=== PATIENT | female | born 1990 | race American Indian/Alaskan Native ===

== ENCOUNTER 2016-09-08 03:49 | Emergency (ER) | payer OTHER ==
[2016-09-08 04:03] VITALS: TEMP 98.5
--- NOTE | 2016-09-08 05:40 | C.PDOC ---
History Of Present Illness 26 year old female who presents to the ER with a complaint of mid sternal, intermittent chest pain for the past week. Patient reports she has been under a lot of stress, she recently broke up with her boyfriend "and ain't got no job now". Denies trauma, cough, fever, SOB, numbness, or weakness. Time Seen by Provider: 09/08/16 04:17 Chief Complaint (Nursing): Chest Pain History Per: Patient History/Exam Limitations: no limitations Onset/Duration Of Symptoms: Days Current Symptoms Are (Timing): Still Present Associated Symptoms: denies: Nausea, Dyspnea, Diaphoresis Modifying Factors: None Exacerbating Factors: None Alleviating Factors: None Recent travel outside of the [place]: No Past Medical History Reviewed: Historical Data, Nursing Documentation, Vital Signs Vital Signs: Last Vital Signs Temp 98.5 F 09/08/16 03:58 Pulse 70 09/08/16 06:19 Resp 14 09/08/16 06:19 BP 130/70 09/08/16 06:19 Pulse Ox 100 09/08/16 06:24 - Medical History PMH: Anxiety Surgical History: (x1) Family History: States: Unknown Family Hx - Social History Hx Tobacco Use: No Hx Alcohol Use: Yes Hx Substance Use: No - Immunization History Hx Tetanus Toxoid Vaccination: No Hx Influenza Vaccination: No Hx Pneumococcal Vaccination: No Review Of Systems Except As Marked, All Systems Reviewed And Found Negative. Constitutional: Negative for: Fever, Chills Cardiovascular: Positive for: Chest Pain. Negative for: Palpitations Respiratory: Negative for: Cough, Shortness of Breath Gastrointestinal: Negative for: Nausea, Vomiting Neurological: Negative for: Weakness, Numbness Physical Exam - Physical Exam Appears: Well, Non-toxic, No Acute Distress Skin: Normal Color, Warm, Dry, No Rash Head: Atraumatic, Normacephalic Eye(s): bilateral: Normal Inspection Oral Mucosa: Moist Neck: Normal ROM, Supple Chest: Symmetrical, No Tenderness Cardiovascular: Rhythm Regular, No Friction Rub, No Murmur Respiratory: Normal Breath Sounds, No Rales, No Rhonchi, No Wheezing Gastrointestinal/Abdominal: Soft, No Tenderness Extremity: Normal ROM, No Swelling Neurological/Psych: Oriented x3, Normal Speech, Normal Cognition, Normal Motor Gait: Steady ED Course And Treatment ECG: Interpreted By Me, Viewed By Me ECG Rhythm: Sinus Rhythm ECG Interpretation: Normal Rate From EC O2 Sat by Pulse Oximetry: 100 (Room air) Pulse Ox Interpretation: Normal - Radiology CXR: Interpreted by Me, Viewed By Me CXR Interpretation: Yes: No Acute Disease Medical Decision Making Medical Decision Making: Plan: * CXR * Xanax * Motrin On reevaluation, patient's pain has improved; Ambulatory in the Ed with steady gait. Will discharge home and advised to follow up with PMD. Disposition - Disposition Referrals: Almas Romero MD [Staff Provider] - Disposition: HOME/ ROUTINE Disposition Time: 06:11 Condition: GOOD Additional Instructions: Follow up with the medical doctor within 1-2 days, Return if worsened. Prescriptions: Ibuprofen [Motrin Tab] 800 mg PO TID #20 tab Instructions: Stress (ED) Forms: [facility] ([place] Zealander) - Clinical Impression Clinical Impression: Anxiety, Stress, Chest pain - Scribe Statement The provider has reviewed the documentation as recorded by the Scribe Claude Neil All medical record entries made by the Scribe were at my direction and personally dictated by me. I have reviewed the chart and agree that the record accurately reflects my personal performance of the history, physical exam, medical decision making, and the department course for this patient. I have also personally directed, reviewed, and agree with the discharge instructions and disposition.
[2016-09-08 06:20] VITALS: BP 130/70; PULSE 70; RESP 14
[2016-09-08 06:23] VITALS: O2SAT 100
--- NOTE | 2016-09-08 11:08 | RAD ---
HISTORY: COMPARISON: None TECHNIQUE: Chest PA and lateral FINDINGS: LINES AND TUBES: None. LUNG AND PLEURA: The lungs are well inflated and clear. There are no pleural effusions or pneumothorax. HEART AND MEDIASTINUM: The heart is not enlarged. The hilar and mediastinal contours are within normal limits. SKELETAL STRUCTURES: The bony structures are within normal limits for the patient's age. VISUALIZED UPPER ABDOMEN: Normal. OTHER FINDINGS: None. IMPRESSION: No active pulmonary disease.
--- NOTE | 2016-09-09 13:57 | CARD ---
APPROVED REPORT EKG Measurement Heart [id number] AL [id number] <Conclusion> Normal sinus rhythm with sinus arrhythmia Normal ECG
== END 2016-09-08 06:19 | disposition home or self-care (01) ==
LOC: C.ER 03:49
DX: R07.9 Chest pain, unspecified (principal); F43.9 Reaction to severe stress, unspecified; F41.9 Anxiety disorder, unspecified

== ENCOUNTER 2016-09-10 22:57 | Emergency (ER) | payer OTHER ==
[2016-09-10 23:11] VITALS: BP 143/105; PULSE 76; RESP 20; TEMP 98.4; O2SAT 100
--- NOTE | 2016-09-11 12:29 | CARD ---
APPROVED REPORT EKG Measurement Heart [id number] 160P31 [id number] <Conclusion> Normal sinus rhythm with sinus arrhythmia Minimal voltage criteria for LVH, may be normal variant Borderline ECG
== END 2016-09-10 23:06 | disposition left against medical advice (07) ==
LOC: C.ER 22:57
DX: Z02.89 Encounter for other administrative examinations (principal); R07.9 Chest pain, unspecified

== ENCOUNTER → 2017-06-08 12:37 | Emergency (ER) | payer MEDICAID, OTHER | END | disposition left against medical advice (07) | LOC: C.ER 12:37 | DX: Z02.89 Encounter for other administrative examinations (principal); R10.9 Unspecified abdominal pain ==

== ENCOUNTER 2017-06-09 11:29 | Emergency (ER) | payer MEDICAID, OTHER ==
[2017-06-09 11:40] VITALS: BP 131/84; TEMP 97.8; O2SAT 100
[2017-06-09 11:48] VITALS: PULSE 87; RESP 20
--- NOTE | 2017-06-09 12:18 | C.PDOC ---
History Of Present Illness 27 yo female come in for evaluation of vaginal discomfort associated with itchiness, swelling gradually developed for past 2 days. Pt reports, had menstrual period yesterday for 1 day. Otherwise, pt denies fever, chills, recent illness or antibiotic use, denies sore throat, abd. pain, V/D, UTi sx, back pain, hematuria. Ambulate to Ed for evaluation, not in any parent distress. Time Seen by Provider: 06/09/17 11:46 Chief Complaint (Nursing): Female Genitourinary History Per: Patient Past Medical History Reviewed: Historical Data, Nursing Documentation, Vital Signs Vital Signs: Last Vital Signs Temp 97.8 F 06/09/17 11:38 Pulse 87 06/09/17 11:38 Resp 20 06/09/17 11:38 BP 131/84 06/09/17 11:38 Pulse Ox 100 06/09/17 12:19 - Medical History PMH: Anxiety Surgical History: (x1) Family History: States: Unknown Family Hx - Social History Hx Tobacco Use: No Hx Alcohol Use: Yes Hx Substance Use: No - Immunization History Hx Tetanus Toxoid Vaccination: Yes Hx Influenza Vaccination: No Hx Pneumococcal Vaccination: No Review Of Systems Except As Marked, All Systems Reviewed And Found Negative. Constitutional: Negative for: Fever, Chills ENT: Negative for: Throat Pain Respiratory: Negative for: Cough, Shortness of Breath Gastrointestinal: Negative for: Nausea, Vomiting, Abdominal Pain, Diarrhea Genitourinary: Positive for: Vaginal Discharge. Negative for: Dysuria, Frequency, Hematuria, Vaginal Bleeding Musculoskeletal: Negative for: Neck Pain, Back Pain Skin: Negative for: Rash Neurological: Negative for: Altered Mental Status, Headache, Dizziness Physical Exam - Physical Exam Appears: Well, Non-toxic, No Acute Distress Skin: Normal Color, Warm, Dry, No Rash Head: Normacephalic Eye(s): bilateral: PERRL Nose: No Discharge Oral Mucosa: Moist, No Drooling Throat: No Erythema, No Drooling Neck: Trachea Midline, Supple Cardiovascular: Rhythm Regular, No Murmur, No JVD Respiratory: No Decreased Breath Sounds, No Accessory Muscle Use, No Stridor, No Wheezing Gastrointestinal/Abdominal: Soft, No Tenderness, No Distention, No Guarding Back: No Vertebral Tenderness, No Paraspinal Tenderness Pelvic: No Vaginal Bleeding, No Vaginal Discharge, No Cervical Motion Tenderness , Other ((+) mod vulvar edema and erythema) Extremity: Normal ROM, No Deformity, No Swelling ED Course And Treatment O2 Sat by Pulse Oximetry: 100 Pulse Ox Interpretation: Normal - CT Scan/US Transvaginal US Other Rad Studies (CT/US): Radiology Report Reviewed CT/US Interpretation: Accession No. : [id number]. Patient Name / ID : TREVOR STEARNS / [id number]. Exam Date : 06/09/2017 14:51:44 ( Approved ). Study Comment : Sex / Age : F / 27Y. Creator : Kristofer Hartley MD. Dictator : Kristofer Hartley MD. Loan Documents Closer : Crown Wheel Assembler : Kristofer Hartley MD. Approver2 : Report Date : 06/09/2017 15:23:30. My Comment : . HISTORY: diffuse lower bad. pain, bleeding. COMPARISON: None available. TECHNIQUE: Transabdominal and transvaginal. FINDINGS: UTERUS: Measures 11.4 x 7.1 x 9.0 cm. Anteverted. Posterior intramural fibroid, 6.1 x 4.6 x 5.8 cm. Pedunculated subserosal fundal fibroid, 3.4 x 2.1 x 3.1 cm. ENDOMETRIUM: Measures 34 mm in diameter. Markedly thickened. CERVIX: No cervical abnormality identified. RIGHT OVARY: Measures 3.4 x 1.5 x 2.8 cm. No solid mass. Normal flow. LEFT OVARY: Measures 3.7 x 1.9 x 3.4 cm. No solid mass. Normal flow. FREE FLUID: No significant free fluid noted. OTHER FINDINGS: None. IMPRESSION: Two uterine fibroids. Thickened endometrium. No intrauterine gestation. Cannot rule out ectopic gestation in the absence of an intrauterine gestation. Progress Note: On re-evaluation, pt is afebrile, hemodynamicaly stable. Non- toxic. PuslEOx 100% RA. ENT: no acute findings. Neck: Supple, (-) meningeal sign. Lungs: CTA B/L, BS equal B/L. Abd: benign, (-) guarding, (-) rebound. Neuorlogicaly intact. After urine preg was non-conclusive, Transvaginal US ordered , review, appears normal. Pt has clinical findings c/w candidial vulvovaginitis, uterine fibroids. Pt advised. ref. to f/u with PMD, [facility] in 2 dyas for re-eval. return to ED if any worsening or new changes. Disposition Counseled Patient/Family Regarding: Studies Performed, Diagnosis, Need For Followup, Rx Given - Disposition Referrals: Almas Romero MD [Staff Provider] - [facility]] Disposition: HOME/ ROUTINE Disposition Time: 15:20 Condition: STABLE Additional Instructions: Take medication as prescribed Follow up with [facility] in 2-3 days for re-evaluation. return to ED at any time if any worsening or new changes. Prescriptions: Fluconazole [Diflucan] 200 mg PO DAILY #2 tab Miconazole/Cleanser 17 On Wipe [Monistat 7 Combination Pack] 1 each VG HS #1 kit Instructions: Vulvovaginal Yeast Infection Forms: [facility] (Frisian) - Clinical Impression Clinical Impression: Vulvovaginal candidiasis
[2017-06-09 13:22] LABS: SQUAMOUS EPITHIAL 1 /hpf (0-5); URINE BACTERIA RARE (<OCC); URINE BILIRUBIN NEGATIVE (NEGATIVE); URINE BLOOD NEGATIVE (NEGATIVE); URINE CLARITY Hazy (Clear); URINE COLOR Yellow (YELLOW); URINE GLUCOSE (UA) NORMAL (Normal); URINE LEUKOCYTE ESTERASE NEG Leu/uL (Negative); URINE PROTEIN NEGATIVE (NEGATIVE); URINE UROBILINOGEN NORMAL mg/dL (0.2-1.0)
[2017-06-09 13:56] LABS: HCG,QUALITATIVE URINE POSITIVE (NEGATIVE)
--- NOTE | 2017-06-09 15:25 | US ---
HISTORY: diffuse lower bad. pain, bleeding COMPARISON: None available. TECHNIQUE: Transabdominal and transvaginal FINDINGS: UTERUS: Measures 11.4 x 7.1 x 9.0 cm. Anteverted. Posterior intramural fibroid, 6.1 x 4.6 x 5.8 cm. Pedunculated subserosal fundal fibroid, 3.4 x 2.1 x 3.1 cm. ENDOMETRIUM: Measures 34 mm in diameter. Markedly thickened. CERVIX: No cervical abnormality identified. RIGHT OVARY: Measures 3.4 x 1.5 x 2.8 cm. No solid mass. Normal flow. LEFT OVARY: Measures 3.7 x 1.9 x 3.4 cm. No solid mass. Normal flow. FREE FLUID: No significant free fluid noted. OTHER FINDINGS: None. IMPRESSION: Two uterine fibroids. Thickened endometrium. No intrauterine gestation. Cannot rule out ectopic gestation in the absence of an intrauterine gestation.
== END 2017-06-09 15:46 | disposition home or self-care (01) ==
LOC: C.ER 11:29
DX: B37.3 Candidiasis of vulva and vagina (principal)